=== PATIENT | male | born 1940 | race Caucasian/White ===

== ENCOUNTER → 2018-05-05 | Outpatient (CLI) | payer OTHER ==
[~2018-05-05] VITALS: Ht 175.3 cm; Wt 72.6 kg
[~2018-05-05] MED LIST: ADULT LOW DOSE81 MG PO; ADVAIR HFA 115-12 GM IH; ALTACE10 M1 PO; ALTACE10 MG PO; ALTACE5 M1 PO; ALTACE5 MG PO; ATORVASTATIN CA40 MG PO; AZITHROMYCIN 2250 MG PO; CARVEDILOL12.5 MG PO; CARVEDILOL25 MG PO; COUMADIN 5 MG TA5 M1 PO; COUMADIN7.5 MG PO; HYCET 7.5 MG-3473 ML PO; KEFLEX250 MG PO; KEFLEX500 MG PO; LANTUS SC; LANTUS100 UNIT/M SUBQ; LIPITOR20 MG PO; METFORMIN HCL500 MG PO; MULTAQ400 MG PO; NORCO 5-325 TA1 EACH PO; PACERONE 200 M200 M1 PO; PERCOCET 5-3251 EACH PO; PLAVIX 75 MG TA75 MG PO; TOPROL XL25 MG PO; TOUJEO SOL300 UNIT/1 SQ; TRADJENTA5 MG; TYLENOL P.M. E1 EAC3; VICODIN 5-5001 EACH PO; XARELTO10 MG PO; XARELTO20 MG PO; ZPAK PO
--- NOTE | ~2018-05-05 | EKG ---
[address] [address] ELECTROCARDIOGRAM REPORT Name: MESFINCARLEEN Quispe Room #: REG [facility]#: [id number] Admission: 05/05/18 Attend Phys: Kameron Sevilla MD Discharge: Date of : 44 Report #: [id number] THIS REPORT FOR: //name// [facility] Test Date: 2018-05-05 Test Time: 07:39:38 Pat Name: CARLEEN TOURE Department: Room: Gender: Division Merchandise Manager: Ceci WATERS : 1940 Requested By: Kameron Sevilla Order Number: [id number] MD: Evan Johnson Measurements Intervals Anderson Rate: 60 P: AR: 121 QRS: 48 QRSD: 113 T: 71 QT: 477 QTc: 477 Interpretive Statements Atrial-paced complexes Poor R wave progression Nonspecific intraventricular conduction delay Compared to ECG 04/20/2018 10:30:38 Atrial fibrillation no longer present Nonspecific change in the ST and T-wave segments Electronically Signed On 05-05-2018 8:21:53 CDT by Evan Johnson [email or web address] <ELECTRONICALLY SIGNED> By: Evan Johnson MD, FACC 05/05/18 0821 0739 0739 Evan Johnson MD, [facility] /EPI
--- NOTE | ~2018-05-05 | P ---
[facility] [place] [place] [address] PROCEDURE REPORT Name: CARLEEN TOURE Room #: REG [facility]#: [id number] Admission: 05/05/18 Attend Phys: Kameron Sevilla MD Discharge: Date of : 44 Report #: [id number] THIS REPORT FOR: //name// CC: Kameron Brewster PROCEDURE: ICD generator exchange. PREOPERATIVE DIAGNOSIS: Implantable cardioverter-defibrillator at elective replacement interval. POSTOPERATIVE DIAGNOSIS: Implantable cardioverter-defibrillator at elective replacement interval. HISTORY OF PRESENT ILLNESS: The patient is a 77-year-old status post ICD implantation, whose device is at the elective replacement interval and he is here for generator exchange. ANESTHESIA: The patient underwent MAC anesthesia, with no anesthesia-related complications. DESCRIPTION OF PROCEDURE: The patient underwent informed consent. We discussed the details of the procedure including the risks, which include but not limited to bleeding, infection and the need for possible lead revisions. He understood these risks and was willing to proceed. The patient was brought to the EP laboratory in a fasting and a sedated state and prepped and draped in a sterile fashion. I injected lidocaine at the incision site. Incision was made and the chronic pocket was opened. I expanded the pocket to make room for the new ICD. I did dissect out the leads and removed some of the capsule at the superior aspect of the pocket. The pocket was irrigated with vancomycin. The new device was connected to the pre-existing leads, tested and found to be functioning normally. The pocket was then closed in 3 layers using 2-0 for the deep layer, 3-0 for the middle layer and 4-0 for the subcuticular with surgical glue placed at the skin layer. The patient awoke neurologically and hemodynamically intact. No complications and no significant bleeding. The explanted device was a Medtronic model number [id number], serial #[id number]. The newly implanted device was a [employer] model #[id number], serial #[id number]. The atrial lead was a Medtronic model #5076, serial #[id number] with a P-wave of 2.3 millivolts, pacing impedance of 430 ohms and a pacing threshold of 0.75 volts at 0.5 milliseconds. The RV lead was a Medtronic model #6947, serial #[id number] with an R-wave of 12 millivolts, pacing impedance of 340 ohms and the pacing threshold of 0.75 volts at 0.5 milliseconds. The device was programmed to the DDDR 60-130 mode and the device was programmed to single VF zone of greater than 200 beats per minute with ATP while charging followed by [facility] [address] [place] [address] PROCEDURE REPORT Name: CARLEEN TOURE [id number] Admission: 05/05/18 Attend Phys: Kameron Sevilla MD Discharge: Date of : 44 Report #: [id number] max output shocks. The patient has had prior inappropriate ICD shocks for atrial fibrillation in the past. CONCLUSIONS: 1. Successful ICD generator change. 2. Satisfactory atrial and ventricular pacing and sensing thresholds. By: 1010 2240 Kameron Sevilla MD /nt
[2018-05-05 07:03] VITALS: BP 153/64
[2018-05-05 07:03] LABS: ABSOLUTE NEUTROPHILS 4.2 thou/uL (1.4-8.2); BASOPHILS 1.2 % (0.0-2.0); EOSINOPHILS 3.8 % (0.0-3.0); HEMATOCRIT 33.5 % (42.0-52.0); HEMOGLOBIN 11.5 gm/dL (14.0-18.0); LYMPHOCYTES 23.9 % (24.0-44.0); MCH 30.1 pg (26.0-34.0); MCHC 34.5 g/dL (28.0-37.0); MCV 87.4 fL (80.0-100.0); PLATELET COUNT 281 thou/uL (150-400); POLYS 60.1 % (36.0-66.0); RBC 3.83 mil/uL (4.50-6.00); RDW 15.2 % (10.5-14.5)
[2018-05-05 07:18] LABS: CALCIUM 8.8 mg/dL (8.5-10.1); CREATININE 1.2 mg/dL (0.7-1.3); POTASSIUM 4.2 mmol/L (3.5-5.1)
[2018-05-05 07:21] LABS: APTT 30.2 Seconds (24.5-32.8); INR 1.2
[2018-05-05 07:24] LABS: ALBUMIN 3.5 g/dL (3.4-5.0); TOTAL BILIRUBIN 0.6 mg/dL (<0.1-1.0)
== END | disposition home or self-care (01) ==
LOC: CATH 06:39
PROVIDERS: Internal Medicine Cardiovascular Disease
DX: Z45.02 Encounter for adjustment and management of automatic implantable cardiac defibrillator (principal); I42.9 Cardiomyopathy, unspecified; I11.0 Hypertensive heart disease with heart failure; I50.9 Heart failure, unspecified; E11.9 Type 2 diabetes mellitus without complications; E78.00 Pure hypercholesterolemia, unspecified; I25.2 Old myocardial infarction; I48.92 Unspecified atrial flutter; I48.91 Unspecified atrial fibrillation; Z95.1 Presence of aortocoronary bypass graft; Z79.899 Other long term (current) drug therapy; Z95.5 Presence of coronary angioplasty implant and graft; Z82.49 Family history of ischemic heart disease and other diseases of the circulatory system; Z87.891 Personal history of nicotine dependence; Z79.01 Long term (current) use of anticoagulants; Z98.890 Other specified postprocedural states
CPT/HCPCS: 62110; 62900; 70005

== ENCOUNTER → 2019-09-08 | Outpatient (CLI) | payer OTHER | LOC: SJCVC 14:52 | DX: I48.0 Paroxysmal atrial fibrillation (principal); I25.89 Other forms of chronic ischemic heart disease; R94.31 Abnormal electrocardiogram [ECG] [EKG]; I48.3 Typical atrial flutter; I25.5 Ischemic cardiomyopathy; I25.10 Atherosclerotic heart disease of native coronary artery without angina pectoris; I10 Essential (primary) hypertension; Z95.1 Presence of aortocoronary bypass graft ==

== ENCOUNTER → 2019-09-12 | Outpatient (CLI) | payer OTHER ==
[~2019-09-12] VITALS: Ht 175.3 cm; Wt 74.8 kg
[2019-09-12 11:17] VITALS: BP 146/72
[2019-09-12 11:33] LABS: ABSOLUTE NEUTROPHILS 7.4 thou/uL (1.4-8.2); BASOPHILS 0.7 % (0.0-2.0); EOSINOPHILS 1.8 % (0.0-3.0); HEMATOCRIT 38.7 % (42.0-52.0); HEMOGLOBIN 12.8 gm/dL (14.0-18.0); LYMPHOCYTES 11.6 % (24.0-44.0); MCH 29.3 pg (26.0-34.0); MCV 88.8 fL (80.0-100.0); MONOCYTES 7.5 % (1.0-8.0); PLATELET COUNT 225 thou/uL (150-400); POLYS 78.4 % (36.0-66.0); RBC 4.35 mil/uL (4.50-6.00); RDW 13.5 % (10.5-14.5); WBC 9.4 thou/uL (4.0-11.0)
[2019-09-12 11:41] LABS: CALCIUM 8.6 mg/dL (8.5-10.1); CREATININE 1.5 mg/dL (0.7-1.3); POTASSIUM 4.4 mmol/L (3.5-5.1)
[2019-09-12 11:44] LABS: INR 1.8; PROTIME 18.3 Seconds (9.3-11.4)
== END | disposition home or self-care (01) ==
LOC: CATH 06:50
PROVIDERS: Internal Medicine Cardiovascular Disease
DX: I48.91 Unspecified atrial fibrillation (principal); I11.0 Hypertensive heart disease with heart failure; I50.9 Heart failure, unspecified; I42.9 Cardiomyopathy, unspecified; E11.9 Type 2 diabetes mellitus without complications; I25.2 Old myocardial infarction; E78.00 Pure hypercholesterolemia, unspecified; I48.92 Unspecified atrial flutter; Z98.890 Other specified postprocedural states; Z79.899 Other long term (current) drug therapy; Z79.4 Long term (current) use of insulin; Z79.01 Long term (current) use of anticoagulants; Z95.0 Presence of cardiac pacemaker; Z95.1 Presence of aortocoronary bypass graft; Z87.891 Personal history of nicotine dependence
CPT/HCPCS: 62110; 62900

== ENCOUNTER → 2019-10-11 | Outpatient (CLI) | payer OTHER | LOC: SJCVC 13:46 | DX: I48.91 Unspecified atrial fibrillation (principal); I21.29 ST elevation (STEMI) myocardial infarction involving other sites; I25.5 Ischemic cardiomyopathy; I25.10 Atherosclerotic heart disease of native coronary artery without angina pectoris; R94.31 Abnormal electrocardiogram [ECG] [EKG] ==

== ENCOUNTER → 2019-10-14 | Outpatient (CLI) | payer OTHER ==
[2019-10-14 08:43] LABS: HEMATOCRIT 38.4 % (42.0-52.0); HEMOGLOBIN 12.5 gm/dL (14.0-18.0); MCHC 32.6 g/dL (28.0-37.0); MCV 89.1 fL (80.0-100.0); RBC 4.32 mil/uL (4.50-6.00); WBC 10.7 thou/uL (4.0-11.0)
[2019-10-14 09:04] LABS: ALBUMIN 3.5 g/dL (3.4-5.0); CREATININE 1.5 mg/dL (0.7-1.3); POTASSIUM 4.6 mmol/L (3.5-5.1); TOTAL BILIRUBIN 0.6 mg/dL (<0.1-1.0); TOTAL PROTEIN 6.9 g/dL (6.4-8.2)
== END ==
LOC: CAT 08:03
PROVIDERS: Internal Medicine Cardiovascular Disease
DX: I48.91 Unspecified atrial fibrillation (principal); I25.10 Atherosclerotic heart disease of native coronary artery without angina pectoris; M47.814 Spondylosis without myelopathy or radiculopathy, thoracic region; M51.34 Other intervertebral disc degeneration, thoracic region

== ENCOUNTER → 2020-03-14 | Outpatient (CLI) | payer OTHER ==
[~2020-03-14] MED LIST changes: +MULTAQ 400 MG400 MG PO; +TOUJEO MAX300 UNIT/1; +TRADJENTA5 MG PO
== END ==
LOC: LAB 14:16
PROVIDERS: ATTEND Internal Medicine Cardiovascular Disease
DX: Z01.812 Encounter for preprocedural laboratory examination (principal); Z11.59 Encounter for screening for other viral diseases

== ENCOUNTER → 2020-03-14 | Outpatient (CLI) | payer OTHER | LOC: SJCVC 13:41 | PROVIDERS: ATTEND Internal Medicine Cardiovascular Disease | DX: Z45.02 Encounter for adjustment and management of automatic implantable cardiac defibrillator (principal); I48.91 Unspecified atrial fibrillation; R94.31 Abnormal electrocardiogram [ECG] [EKG]; I25.10 Atherosclerotic heart disease of native coronary artery without angina pectoris; I25.5 Ischemic cardiomyopathy; I48.92 Unspecified atrial flutter; E13.649 Other specified diabetes mellitus with hypoglycemia without coma; Z95.810 Presence of automatic (implantable) cardiac defibrillator; Z79.899 Other long term (current) drug therapy ==

== ENCOUNTER → 2020-03-16 | Outpatient (CLI) | payer OTHER ==
[~2020-03-16] VITALS: Ht 175.3 cm; Wt 74.8 kg
[~2020-03-16] MED LIST changes: -MULTAQ 400 MG400 MG PO; -TOUJEO MAX300 UNIT/1; -TRADJENTA5 MG PO
[2020-03-16 07:03] VITALS: BP 155/66
--- NOTE | 2020-03-16 09:04 | NUR ---
pt is able to make his own decisions. Pt does not have an Advance Directive. pt educated by Cynthia Joyce RN on importance of having one.
--- NOTE | 2020-03-16 09:16 | TEE ---
[facility] [place] [address] TRANSESOPHAGEAL ECHOCARDIOGRAM Name: CARLEEN TOURE Room #: REG [facility]#: [id number] Admission: 03/16/20 Attend Phys: Evan Johnson MD, Discharge: Date of : 44 Report #: [id number] THIS REPORT FOR: cc: Bob Brewster MD, Neal A. MD Lundgren, Craig H. MD [facility] ~ APPROVED REPORT Study performed: 03/16/2020 07:49:07 EXAM: Comprehensive 2D, Doppler, and color-flow Echocardiogram Patient Location: Out-Patient Room #: 9 Status: routine BSA: 1.90 HR: 60 bpm BP: 155/66 mmHg Rhythm: Pacemaker Other Information Study Quality: Excellent Indications Atrial Fibrillation Echo Enhancing Agent Indication: Rule out Shunt Agent(s) / Amount(s) Used: Agitated Saline 7 cc Procedure After obtaining informed consent, patient underwent transesophageal echo in the [employer]. Type of Sedation : Conscious Sedation Sedation was administered by Berenice Grimaldo RN. Sedation start time: 08 Case end Time: 808 Sedation was achieved intravenously with: Versed (4 mg) Fentanyl (50 mcg) Transesophageal probe was inserted and advanced into esophagus without difficulty by Evan Johnson MD. Echo enhancement indication: R/O Septal defect. Echo enhancement agent administered: Agitated Saline The [place] was performed without complications. Throughout the procedure, the blood pressure, pulse oximetry, cardiac [facility] [address] [place] [address] TRANSESOPHAGEAL ECHOCARDIOGRAM Name: CARLEEN TOURE Room #: REG [facility]#: [id number] Admission: 03/16/20 Attend Phys: Evan Johnson, Discharge: Date of : 44 Report #: [id number] rhythm, and rate were monitored. The patient tolerated the procedure without adverse effects. Recovery from conscious sedation was uneventful and vital signs were stable. Left Ventricle The left ventricle is normal size. There is normal LV segmental wall motion. There is normal left ventricular wall thickness. The left ventricular systolic function is at the lower limits of normal LVEF is 50-55%. Right Ventricle The right ventricle is normal size. The right ventricular systolic function is normal. Device lead is present in the right ventricle. Atria Left atrium is dilated. No thrombus is visualized in the left atrium or appendage. Prominent pectinate muscles. No shunting by contrast bubble injection The right atrium size is normal. Device lead is present in the right atrium. Aortic Valve The aortic valve is mildly sclerotic, trileaflet Trace aortic regurgitation. There is no aortic valvular stenosis. Mitral Valve The mitral valve is normal in structure. Mild mitral regurgitation. No evidence of mitral valve stenosis. Tricuspid Valve The tricuspid valve is normal in structure. There is no tricuspid valve regurgitation noted. Pulmonic Valve The pulmonary valve is normal in structure. There is no pulmonic valvular regurgitation. Great Vessels The aortic root is normal in size. Mild scattered atherosclerotic plaquing; no aneurysm IVC is normal in size and collapses >50% with inspiration. Pericardium There is no pericardial effusion. <Conclusion> [facility] [address] [place] [address] TRANSESOPHAGEAL ECHOCARDIOGRAM Name: MESFINCARLEEN Brittaney Room #: REG [facility]#: [id number] Admission: 03/16/20 Attend Phys: Evan Johnson, Discharge: Date of : 44 Report #: [id number] The left ventricular systolic function is at the lower limits of normal There is normal LV segmental wall motion. LVEF is 50-55%. Left atrium is dilated. No shunting by contrast bubble injection No thrombus is visualized in the left atrium or appendage. Prominent pectinate muscles. The aortic valve is mildly sclerotic, trileaflet. Trace aortic regurgitation, no stenosis. The mitral valve is normal in structure. Mild mitral regurgitation. Mild scattered atherosclerotic plaquing; no aneurysm There is no pericardial effusion. <ELECTRONICALLY SIGNED> By: Evan Johnson MD, [facility] 03/16/20915 5 5 Evan Johnson MD, FACC /INF
== END | disposition home or self-care (01) ==
LOC: CATH 06:33
PROVIDERS: ATTEND Internal Medicine
DX: I48.91 Unspecified atrial fibrillation (principal); I08.0 Rheumatic disorders of both mitral and aortic valves; I70.0 Atherosclerosis of aorta; I42.9 Cardiomyopathy, unspecified; I11.0 Hypertensive heart disease with heart failure; I50.9 Heart failure, unspecified; E11.9 Type 2 diabetes mellitus without complications; E78.00 Pure hypercholesterolemia, unspecified; I25.2 Old myocardial infarction; I48.92 Unspecified atrial flutter; Z98.890 Other specified postprocedural states; Z79.899 Other long term (current) drug therapy; Z79.01 Long term (current) use of anticoagulants; Z95.0 Presence of cardiac pacemaker; Z95.1 Presence of aortocoronary bypass graft

== ENCOUNTER 2020-03-19 09:04 | Observation (INO) | payer OTHER ==
[2020-03-19] VITALS (10 sets, daily range): BP systolic 132–161; BP diastolic 54–67
[~2020-03-19] VITALS: Ht 175.3 cm; Wt 74.8 kg
[2020-03-19] MEDS ORDERED: MULTAQ 400 MG400 MG PO (10:19)
[2020-03-19] MEDS ORDERED: TRADJENTA5 MG PO (10:19)
[2020-03-19] MEDS ORDERED: TOUJEO MAX300 UNIT/1 (10:21)
[2020-03-19 11:03] LABS: ABSOLUTE NEUTROPHILS 6.6 thou/uL (1.4-8.2); BASOPHILS 0.7 % (0.0-2.0); EOSINOPHILS 1.6 % (0.0-3.0); HEMATOCRIT 40.2 % (42.0-52.0); HEMOGLOBIN 13.8 gm/dL (14.0-18.0); LYMPHOCYTES 16.1 % (24.0-44.0); MCH 29.9 pg (26.0-34.0); MCHC 34.2 g/dL (28.0-37.0); MCV 87.3 fL (80.0-100.0); MONOCYTES 9.4 % (1.0-8.0); PLATELET COUNT 198 thou/uL (150-400); POLYS 72.2 % (36.0-66.0); RBC 4.61 mil/uL (4.50-6.00); RDW 15.5 % (10.5-14.5); WBC 9.1 thou/uL (4.0-11.0)
[2020-03-19 11:11] LABS: CALCIUM 8.3 mg/dL (8.5-10.1); CREATININE 1.6 mg/dL (0.7-1.3); POTASSIUM 4.7 mmol/L (3.5-5.1)
[2020-03-19 11:17] LABS: INR 1.2
--- NOTE | 2020-03-19 17:58 | NUR ---
ARRIVED FROM CATHLAB VIA BED, ALERT AND ORIENTED, AND VSS. RT GRION SITE D/C/I AND ADMISION COMPLETED. AND WILL CONTINUE WITH POC
--- NOTE | 2020-03-20 03:23 | NUR ---
PATIENT IS ADVANCING IN HIS CARE PLAN. VITAL SIGNS STABLE WITH PATIENT HAVING NO COMPLAINTS OF PAIN OR NAUSEA THROUGHOUT SHIFT. FULLY ORIENTED, PATIENT IS ABLE TO CALL APPROPRIATELY FOR NEEDS AND PARTICIPATE IN CARE. GROIN SITE APPEARS TO HAVE A SMALL CONTAINED LEAK WITH NO HEMATOMA FORMATION. PATIENT IS UP WITH ASSISTANCE INCIDENT FREE AND APPEARS STRONG AND BALANCED WHEN WALKING. ANXIOUS FOR POTENTIAL DISCHARGE. CONTINUE PLAN OF CARE.
[2020-03-20 05:18] VITALS: BP 124/59
[2020-03-20 07:37] VITALS: BP 130/58
[2020-03-20 09:48] VITALS: BP 130/58
--- NOTE | 2020-03-20 10:09 | NUR ---
ASSESSMENT CHARTED, KACI COVERED THIS AM WITH SSI. PT UP AD HEMALATHA TO BATHROOM. MARISOL DIET AND FLUIDS. NO CO'S OF PAIN OR NAUSEA. GROIN INTACT. PT HOME THIS AM, INSTRCUTION RE HOME MEDS/ CARE AND FOLLOW UP GIVEN TO PATIENT- STATED UNDERSTANDING OF INSTRUCTION GIVEN, MONITOR AND IV REMOVED PRIOR TO D/C. LEFT UNIT VIA WHEEL CHAIR HOME VIA PVT VEHICLE ACCOMPANIED BY DAUGHTER. NO CO'S AT TIME OF D/C.
--- NOTE | 2020-03-26 11:35 | P ---
[facility] [place] [address] PROCEDURE REPORT Name: CARLEEN TOURE Brittaney Room #: 215-P [facility] Christy Lynne#: [id number] Admission: 03/19/20 Attend Phys: Kameron Sevilla MD Discharge: 03/20/20 Date of : 44 Report #: [id number] THIS REPORT FOR: cc: Bob Brewster MD, Neal A. MD Couchonnal, Luis F. MD ~ CC: Kameron Brewster ATRIAL FIBRILLATION ABLATION PREOPERATIVE DIAGNOSES: 1. Atrial fibrillation. 2. Ischemic cardiomyopathy. 3. Prior ICD implantation. POSTOPERATIVE DIAGNOSES: 1. Atrial fibrillation. 2. Ischemic cardiomyopathy. 3. Prior ICD implantation. PROCEDURES PERFORMED: 1. Atrial fibrillation ablation, CPT code 13592. 2. 3D mapping, CPT code 54539. 3. Intracardiac echo, CPT code 31655. 4. Preablation ICD reprogramming, CPT code 55572. 5. Post-procedure ICD reprogramming, CPT code 24036. HISTORY: The patient is a 79-year-old with a history of ischemic cardiomyopathy, status post ICD implantation with recurrent paroxysmal atrial fibrillation, here for AFib ablation. ANESTHESIA: The patient underwent general anesthesia with no anesthesia-related complications. DESCRIPTION OF PROCEDURE: The patient underwent informed consent. He was prepped and draped in a sterile fashion. I obtained access to the right femoral vein x 3, placing 8, 9 and 7-Estonian short sheath using the modified Seldinger technique. Prior to ablation, I did reprogram his ICD, turned off all therapies. Next, I placed a decapolar catheter into the coronary sinus and an ICE catheter in the right atrium, created a detailed 3D geometry of the left atrium using CartoSound and merged this with the cardiac CT scan. The patient was systemically heparinized and a transseptal was performed using an SL1 sheath and a Lotus needle and then I exchanged for the cryo sheath and the cryoballoon. Next, I started by isolating the left superior pulmonary vein. I performed three 4-minute freezes in the left superior pulmonary vein and it appeared to be isolated. I then turned my attention to the left inferior [facility] [address] [place] [address] PROCEDURE REPORT Name: CARLEEN TOURE Room #: 215-P [facility] Christy Balderas.#: [id number] Admission: 03/19/20 Attend Phys: Kameron Sevilla MD Discharge: 03/20/20 Date of : 44 Report #: [id number] pulmonary vein and performed a single 4-minute freeze and the vein isolated within 65 seconds. I then turned my attention to the right superior pulmonary veins for the right veins and phrenic nerve pacing was performed. The vein underwent a 210-second freeze and the vein was isolated. The right inferior pulmonary vein underwent a 215-second freeze and the vein isolated within 70 seconds. Next, a repeat voltage map was created of the left atrium using the Lasso catheter. There was cleared wide circumferential ablation of the pulmonary veins. An EP study was performed and AV block was noted at 430 milliseconds. The patient went into what appeared to possibly be atrial flutter and I was going to map this on the right side, but this degenerated to AFib. As such, a 200 joule cardioversion was performed. Intracardiac ultrasound showed there was no pericardial effusion. The patient received systemic protamine and once ACT was within acceptable range, catheters and sheaths were pulled and hemostasis was obtained. His ICD was interrogated and found to be functioning normally and was programmed back to its nominal settings. CONCLUSIONS: 1. Successful atrial fibrillation ablation with isolation of the pulmonary veins. 2. Successful ICD reprogramming. <ELECTRONICALLY SIGNED> By: Kameron Sevilla MD 03/26/20 1135 1120 1314 Kameron Sevilla MD /nt
== END 2020-03-20 10:10 | disposition home or self-care (01) ==
LOC: CATH 09:04 → 2N 14:27
PROVIDERS: ADMIT Internal Medicine Cardiovascular Disease; ATTEND Internal Medicine Cardiovascular Disease
DX: I48.0 Paroxysmal atrial fibrillation (principal); I25.5 Ischemic cardiomyopathy; I25.10 Atherosclerotic heart disease of native coronary artery without angina pectoris; I12.9 Hypertensive chronic kidney disease with stage 1 through stage 4 chronic kidney disease, or unspecified chronic kidney disease; E11.22 Type 2 diabetes mellitus with diabetic chronic kidney disease; N18.9 Chronic kidney disease, unspecified; N17.9 Acute kidney failure, unspecified; Z79.01 Long term (current) use of anticoagulants; Z79.82 Long term (current) use of aspirin; Z79.899 Other long term (current) drug therapy; Z95.818 Presence of other cardiac implants and grafts; Z95.1 Presence of aortocoronary bypass graft
CPT/HCPCS: 65020; 65040; 70005

== ENCOUNTER → 2020-04-17 | Outpatient (CLI) | payer OTHER ==
[~2020-04-17] MED LIST changes: +MULTAQ 400 MG400 MG PO; +TOUJEO MAX300 UNIT/1; +TRADJENTA5 MG PO
== END ==
LOC: LAB 08:31
PROVIDERS: ATTEND Family Medicine
DX: Z20.828 Contact with and (suspected) exposure to other viral communicable diseases (principal)

== ENCOUNTER → 2020-06-19 | Outpatient (CLI) | payer OTHER | LOC: SJCVC 11:24 | PROVIDERS: ATTEND Internal Medicine Cardiovascular Disease | DX: R94.31 Abnormal electrocardiogram [ECG] [EKG] (principal); I48.91 Unspecified atrial fibrillation; I47.2 Ventricular tachycardia; I10 Essential (primary) hypertension; I25.10 Atherosclerotic heart disease of native coronary artery without angina pectoris; E11.9 Type 2 diabetes mellitus without complications; Z95.1 Presence of aortocoronary bypass graft; Z95.810 Presence of automatic (implantable) cardiac defibrillator; Z79.899 Other long term (current) drug therapy ==

== ENCOUNTER → 2020-12-18 | Outpatient (CLI) | payer OTHER | LOC: SJCVC 10:27 | PROVIDERS: ATTEND Internal Medicine Cardiovascular Disease | DX: R94.31 Abnormal electrocardiogram [ECG] [EKG] (principal); I25.5 Ischemic cardiomyopathy; I47.2 Ventricular tachycardia; I48.0 Paroxysmal atrial fibrillation; I42.9 Cardiomyopathy, unspecified; E11.9 Type 2 diabetes mellitus without complications; I10 Essential (primary) hypertension; I25.10 Atherosclerotic heart disease of native coronary artery without angina pectoris; Z95.0 Presence of cardiac pacemaker; Z95.1 Presence of aortocoronary bypass graft; I48.92 Unspecified atrial flutter; Z72.89 Other problems related to lifestyle ==

== ENCOUNTER → 2021-06-18 | Outpatient (CLI) | payer OTHER | LOC: SJCVC 14:10 | PROVIDERS: ATTEND Internal Medicine Cardiovascular Disease | DX: R94.31 Abnormal electrocardiogram [ECG] [EKG] (principal); I48.91 Unspecified atrial fibrillation; I25.5 Ischemic cardiomyopathy; E11.9 Type 2 diabetes mellitus without complications; I10 Essential (primary) hypertension; I25.10 Atherosclerotic heart disease of native coronary artery without angina pectoris; I48.92 Unspecified atrial flutter; Z95.810 Presence of automatic (implantable) cardiac defibrillator; Z72.89 Other problems related to lifestyle; Z82.49 Family history of ischemic heart disease and other diseases of the circulatory system ==